=== PATIENT | male | born 1980 | race Caucasian/White ===

== ENCOUNTER → 2017-01-06 | Outpatient (CLI) | payer OTHER ==
[~2017-01-06] MED LIST: ACIPHEX20 MG PO; ASPIRIN81 M1 PO; BACTRIM DS TABL1 TA1 PO; FLEXERIL10 MG PO; LORTAB 5/500 TA1 TA2 PO; VOLTAREN75 MG PO; ZANAFLEX4 M1 PO; ZYRTEC10 M2 PO
--- NOTE | ~2017-01-06 | CR63 ---
[facility] A Service of [facility] RADIOLOGY TEXT RESULTS PATIENT: GABE SWEENEY LOCATION: [facility] : 80 UNIT #: [id number] AGE: [address]: NOEMY HERNÁNDEZ SEX: M ORDER DR: [id number] [facility] [address] [place], [place] [address] [id number] O MR#: [id number] Acc #: [id number] NAME: GABE SWEENEY : 1980 SEX: M STUDY DATE/TIME: 01/06/2017 16:04 UNIT: [facility] ROOM: STUDY DESCRIPTION: CR Chest 2 View Attending Physician: Noemy Hernández Aprn Referring Physician: Noemy Hernández Aprn Ordering Physician: Noemy Hernández Aprn Primary Care Physician: Noemy Hernández Aprn MEDICAL IMAGING REPORT This report is preliminary unless electronic signature is present EXAM PA and lateral chest HISTORY Cough and shortness of air for 1 month, previous pneumonia. COMPARISON 06/04/2015 FINDINGS PA and lateral views of the chest were obtained. The heart size and vascularity are normal. The lungs are clear. There is very mild dextroscoliosis. IMPRESSION No active disease. Dictated by... Daniel Wagner M.D. THIS IS AN ELECTRONICALLY VERIFIED REPORT Daniel Wagner M.D. at 01/07/2017 3:55 PM FEL/to TD: 01/06/2017 22:08 JOB #: [id number] MEDICAL IMAGING REPORT Page 1 of 1 COPY
== END | disposition home or self-care (01) ==
LOC: CRAD 15:29
DX: R05 Cough (principal)
CPT/HCPCS: 71020